=== PATIENT | female | born 1985 | race American Indian/Alaskan Native ===

== ENCOUNTER 2017-04-24 14:21 | Outpatient (CLI) | payer MEDICAID, BC ==
[2017-04-24] MEDS ORDERED: LACTATED RINGERS 500 ML IV ONE (14:45)
[2017-04-24 15:11] LABS: Bacteria,Urine 2+ /HPF (Negative); Bilirubin,Urine NEG (Negative); Blood,Urine NEG (Negative); Ketones,Urine NEG (Negative); Leukocyte Esterase,Urine MOD (Negative); Mucus,Urine FEW /HPF; Nitrite,Urine NEG (Negative); Protein,Urine <15 mg/dL mg/dL (Negative)
[2017-04-24] MEDS ORDERED: ZOFRAN PO ONE (15:44)
[2017-04-24] MEDS ORDERED: ZOFRAN IV ONE (16:21)
[2017-04-24 16:22] LABS: Hematocrit 32.1 % (30.3-42.9); Hemoglobin 10.5 gm/dl (10.1-14.3); Mean Corpuscular HGB Conc 33 % (30-34); Mean Corpuscular Hemoglobin 27 pg (28-32); Mean Corpuscular Volume 84 fl (79-97); Platelet Count 224 K/mm3 (140-440); Red Blood Count 3.85 M/mm3 (3.65-5.03); Red Cell Distribution Width 14.7 % (13.2-15.2); White Blood Count 9.7 K/mm3 (4.5-11.0)
[2017-04-24 16:23] LABS: Alanine Aminotransferase 8 units/L (7-56); Albumin 3.5 g/dL (3.9-5); Albumin/Globulin Ratio 1.1 %; Alkaline Phosphatase 147 units/L (35-129); Anion Gap 19 mmol/L; BUN/Creatinine Ratio 18; Blood Urea Nitrogen 7 mg/dL (7-17); Calcium 8.7 mg/dL (8.4-10.2); Carbon Dioxide 21 mmol/L (22-30); Chloride 101.6 mmol/L (98-107); Glucose 84 mg/dL (65-100); Potassium 3.7 mmol/L (3.6-5.0); Sodium 138 mmol/L (137-145); Total Protein 6.6 g/dL (6.3-8.2)
[2017-04-24 17:35] VITALS: BP 114/70
== END 2017-04-24 17:40 | disposition home or self-care (01) ==
LOC: TRG 14:21
PROVIDERS: ATTEND Obstetrics & Gynecology
DX: O47.03 False labor before 37 completed weeks of gestation, third trimester (principal); Z87.891 Personal history of nicotine dependence; Z3A.35 35 weeks gestation of pregnancy
CPT/HCPCS: 36415; 59025; 80053; 81001; 85027; 96360; 96374; J2405; J7120; Q0162

== ENCOUNTER 2017-06-03 04:22 | Inpatient (IN) | payer BC, MEDICAID ==
[2017-06-03] MEDS ORDERED: MINERAL OIL PO PRN (06:40)
[2017-06-03] MEDS ORDERED: BRETHINE SUB-Q PRN (06:40)
[2017-06-03] MEDS ORDERED: ePHEDrine SULFATE IV PRN ×2 (06:40→10:00)
[2017-06-03] MEDS ORDERED: ZOFRAN IV PRN ×2 (06:40→12:00)
[2017-06-03] MEDS ORDERED: SUBLIMAZE IV PRN (06:40)
[2017-06-03] MEDS ORDERED: BRETHINE IVP PRN (06:40)
[2017-06-03] MEDS ORDERED: XYLOCAINE 2% INFILTRATI ONE (06:40)
--- NOTE | 2017-06-03 06:47 | History and Physical Report ---
History of Present Illness Date of examination: 06/03/17 Chief complaint: Painful contractions History of present illness: 31 y/o at 40+6 wks in active labour, she is a [facility] patient. care has been unremarkable, she is GBS neg per oral report. Have no records at [facility] er time. In triage, she is 6-7 cm and post. Cephalic presentation. Past History Past Medical History: no pertinent history Past Surgical History: no surgical history [employer] History: denies: chlamydia, gonorrhea, hepatitis B, hepatitis C, herpes, HIV , syphilis, trichomonas Social history: single, full code. denies: smoking, alcohol abuse, prescription drug abuse, IV drug use - Obstetrical History Expected Date of Delivery: 05/28/17 Actual Gestation: 40 Week(s) 6 Day(s) : 5 Para: 3 Medications and Allergies Allergies Allergy/AdvReac Type Severity Reaction Status Date / Time No Known Allergies Allergy Verified 09/03/15 09:23 Home Medications Medication Instructions Recorded Confirmed Last Taken Type Vit Calc,Iron,Folic 1 each PO QDAY #30 tablet 09/03/15 04/21/17 09:00 Rx [ Vitamins] 1 Review of Systems Constitutional: no fever, no chills, no fatigue, no weakness, no malaise, no lethargy, no chronic headaches Cardiovascular: no chest pain, no orthopnea, no syncope, no lightheadedness, no shortness of breath, no dyspnea on exertion, no paroxysmal nocturnal dyspnea, no high blood pressure, no decreased exercise tolerance Respiratory: no cough, no cough with sputum, no shortness of breath, no dyspnea on exertion Gastrointestinal: abdominal pain, no nausea, no vomiting, no heartburn, no excessive gas, no dyspepsia/bloating Genitourinary: contractions, no vaginal bleeding, no vaginal discharge, no leakage of fluid - Vital Signs Vital signs: Vital Signs Temp Resp 98.2 F 18 06/03/17 04:41 06/03/17 04:41 Temp Pulse Resp BP Pulse Ox 98.2 F 93 H 18 137/90 06/03/17 04:41 06/03/17 06:20 06/03/17 04:41 06/03/17 06:20 - Physical Exam Cardiovascular: Regular rate, Normal S1, Normal S2 Lungs: Positive: Clear to auscultation, Normal air movement Abdomen: Positive: normal appearance, soft. Negative: tenderness, guarding, rigidity Genitourinary (Female): Positive: normal external genitalia Vulva: both: normal Uterus: Positive: enlarged (EFW ~ 3500) Adnexa: both: normal Extremities: Positive: normal - Obstetrical FHR: category 1 Cervical Dilatation: 6.5 station: -1 Results All other labs normal. Assessment and Plan A: 31 y/o at 40+6 wks in active labor -Doing well P: -Admit -Routine labs -Epidural prn -Expectant mgt - Patient Problems (1) 40 weeks gestation of Current Visit: Yes Status: Acute (2) Active labor at term Current Visit: Yes Status: Acute
[2017-06-03] MEDS ORDERED: PITOCin/NS 20 UNIT/1000ML DRIP 20 UNITS/1,000 ML BAG IV SCH ×2 (07:00→12:00)
[2017-06-03] MEDS ORDERED: LACTATED RINGERS 1,000 ML IV SCH (07:00)
[2017-06-03] MEDS ORDERED: PITOCin/NS 30 UNIT/500ML 30 UNITS/500 ML BAG IV SCH ×2 (07:00)
[2017-06-03 08:02] LABS: Hematocrit 33.5 % (30.3-42.9); Hemoglobin 10.6 gm/dl (10.1-14.3); Mean Corpuscular HGB Conc 32 % (30-34); Mean Corpuscular Volume 80 fl (79-97); Platelet Count 213 K/mm3 (140-440); Red Blood Count 4.17 M/mm3 (3.65-5.03)
[2017-06-03 08:16] LABS: Mean Corpuscular Hemoglobin 26 pg (28-32)
[2017-06-03] MEDS ORDERED: NARCAN 2 MG/2 ML IV PRN (09:22)
--- NOTE | 2017-06-03 09:22 | Anesthesia Consultation ---
Anesthesia Consult and Med Hx Date of service: 06/03/17 - Airway Anesthetic Teeth Evaluation: Good ROM Head & Neck: Adequate Mental/Hyoid Distance: Adequate Mallampati Class: Class II Intubation Access Assessment: Probably Good - Pulmonary Exam CTA: Yes - Cardiac Exam Cardiac Exam: RRR - Pre-Operative Health Status ASA Pre-Surgery Classification: ASA2 Proposed Anesthetic Plan: Epidural - Pre-Anesthesia Comment Pre-Anesthesia Comments: 31y at 40+ weeks - Pulmonary Hx Smoking: Yes (3-4 cig/ day) Hx Asthma: No SOB: No COPD: No Hx Pneumonia: No - Cardiovascular System Hx Hypertension: No - Central Nervous System Hx Seizures: No Hx Psychiatric Problems: No - Gastrointestinal Hx Gastroesophageal Reflux Disease: Yes (during only) - Endocrine Hx Renal Disease: No Hx End Stage Renal Disease: No Hx Non-Insulin Dependent Diabetes: No Hx Hypothyroidism: No Hx Hyperthyroidism: No - Hematic Hx Anemia: Yes Hx Sickle Cell Disease: No - Other Systems Hx Alcohol Use: No Hx Substance Use: Yes (occ marijuana) Hx Obesity: No
[2017-06-03] MEDS ORDERED: fentaNYL-BUPIV 2 MCG/ML-0.125% 200 MCG/100 ML BAG EPIDURAL SCH (10:00)
--- NOTE | 2017-06-03 11:41 | Procedure Note ---
OB Delivery Note - Delivery Date of Delivery: 06/03/17 Surgeon: VERENA HUBER Estimated blood loss: 100cc - Vaginal Delivery presentation: vertex Delivery position: OA Intrapartum events: precipitous labor- <3hr Delivery induction: none Delivery augmentation: pitocin Delivery monitor: external FHT, external uterine Route of delivery: Delivery placenta: spontaneous Delivery cord: 3 umbilical vessels Episiotomy: none Delivery laceration: 2nd degree Delivery repair: vicryl Anesthesia: epidural - Infant A at 1 minute: 8 at 5 minutes: 9 Gender: Male (delivery 11:23 AM, weight 8 lbs. 3 oz. or 3706 grams )
[2017-06-03] MEDS ORDERED: TYLENOL PO PRN (12:00)
[2017-06-03] MEDS ORDERED: PHENERGAN PR PRN (12:00)
[2017-06-03] MEDS ORDERED: NORCO 5/325 PO PRN (12:00)
[2017-06-03] MEDS ORDERED: LANSINOH TP PRN (12:00)
[2017-06-03] MEDS ORDERED: SENOKOT S PO SCH (12:00)
[2017-06-03] MEDS ORDERED: PHENERGAN PO PRN (12:00)
[2017-06-03] MEDS ORDERED: SODIUM CHLORIDE FLUSH SYRINGE 10 ML IV PRN (12:00)
[2017-06-03] MEDS ORDERED: ANUCORT-HC PR PRN (12:00)
[2017-06-03] MEDS ORDERED: TUCKS PAD TP PRN (12:00)
[2017-06-03] MEDS ORDERED: BENADRYL PO PRN (12:00)
[2017-06-03] MEDS: MOTRIN PO SCH (19:13)
[2017-06-03] MEDS ORDERED: DERMOPLAST TP PRN (20:47)
[2017-06-03] MEDS: FEOSOL PO SCH (21:27)
[2017-06-03] MEDS: COLACE PO SCH (21:27)
[2017-06-03] MEDS ORDERED: MILK OF MAGNESIA PO PRN (22:00)
[2017-06-03] MEDS ORDERED: DULCOLAX PR PRN (22:00)
[2017-06-04] MEDS: MOTRIN PO SCH ×3 (00:12→14:00)
[2017-06-04 01:04] LABS: Hematocrit 29.6 % (30.3-42.9); Hemoglobin 9.2 gm/dl (10.1-14.3)
--- NOTE | 2017-06-04 07:21 | Progress Note ---
Assessment and Plan - Patient Problems (1) (normal spontaneous vaginal delivery) Onset Date: 06/04/17 Current Visit: Yes Status: Resolved Plan to address problem: A: S/P - PPD #1 Doing well Asymptomatic anemia - stable P: May go home today Subjective - Subjective Date of service: 06/04/17 Principal diagnosis: s/p - PPD #1 Interval history: Pt is feeling well without complaints. Bleeding improved. Patient reports: appetite normal, voiding normally, pain well controlled, flatus , ambulating normally Swisher: doing well, nursing well Objective - Vital Signs Latest vital signs: Vital Signs Temp Pulse Resp BP BP Pulse Ox 06/04/17 01:19 97.7 F 111/69 06/03/17 20:05 98.4 F 87 18 122/77 98 06/03/17 17:22 98.0 F 77 18 124/71 96 06/03/17 13:40 97.4 F L 86 20 129/83 06/03/17 12:39 86 138/88 06/03/17 12:24 82 133/83 06/03/17 12:09 82 126/82 06/03/17 12:00 85 100 06/03/17 11:55 84 100 06/03/17 11:24 105 H 100 06/03/17 11:19 81 67 L 06/03/17 11:18 61 89 06/03/17 11:14 91 H 100 06/03/17 11:13 10 L 06/03/17 11:09 89 100 06/03/17 11:08 93 H 0 L 06/03/17 11:04 86 100 06/03/17 10:59 84 100 06/03/17 10:54 93 H 100 06/03/17 10:49 93 H 100 06/03/17 10:45 83 133/85 06/03/17 10:43 83 99 06/03/17 10:38 91 H 100 06/03/17 10:33 84 99 06/03/17 10:27 92 H 100 06/03/17 10:25 89 0 L 06/03/17 10:21 97 H 100 06/03/17 10:19 104 H 136/81 06/03/17 10:17 100 H 146/73 06/03/17 10:15 90 131/74 06/03/17 10:14 90 94 02/01/18 10:13 100 H 147/64 06/03/17 10:10 86 138/76 100 06/03/17 10:09 89 131/75 0 L 06/03/17 10:07 86 136/76 06/03/17 10:05 99 H 100 06/03/17 10:04 98 H 135/72 06/03/17 10:02 114 H 129/72 06/03/17 10:00 116 H 143/81 100 06/03/17 09:58 97 H 138/79 06/03/17 09:56 122 H 133/73 06/03/17 09:55 111 H 100 06/03/17 09:54 109 H 134/83 06/03/17 09:52 90 129/83 06/03/17 09:51 86 136/85 06/03/17 09:50 62 L 06/03/17 09:48 82 131/80 100 06/03/17 09:47 93 H 121/76 06/03/17 09:46 89 131/77 06/03/17 09:43 105 H 100 06/03/17 09:38 100 H 100 06/03/17 09:36 107 H 86 06/03/17 09:31 103 H 132/88 06/03/17 08:47 91 H 100 06/03/17 08:42 94 H 136/86 99 06/03/17 08:00 98.2 F 88 18 136/86 99 06/03/17 07:49 18 Intake and Output 06/03/17 06/04/17 06/04/17 22:59 06:59 14:59 Intake Total 480 Balance 480 Intake: Oral 480 Other: Total, Intake Amount 480 # Voids Void 1 - Exam Breasts: Present: deferred Abdomen: Present: normal appearance, soft Uterus: Present: normal, firm, fundal height below umbilicus Extremities: Present: normal - Labs Labs: Abnormal lab results 06/03/17 06/04/17 Range/Units 07:37 00:40 WBC 11.7 H (4.5-11.0) K/mm3 Hgb 9.2 L (10.1-14.3) gm/dl Hct 29.6 L (30.3-42.9) % MCH 26 L (28-32) pg RDW 16.0 H (13.2-15.2) % Laboratory Tests 06/03/17 06/03/17 06/03/17 07:37 07:37 07:37 WBC 11.7 H RBC 4.17 Hgb 10.6 Hct 33.5 MCV 80 MCH 26 L MCHC 32 RDW 16.0 H Plt Count 213 RPR Nonreactive Blood Type O POSITIVE Antibody Screen Negative 06/04/17 00:40 WBC RBC Hgb 9.2 L Hct 29.6 L MCV MCH MCHC RDW Plt Count RPR Blood Type Antibody Screen
--- NOTE | 2017-06-04 08:35 | Discharge Summary ---
Providers - Providers Date of Admission: 06/03/17 06:50 Date of discharge: 06/04/17 Attending physician: VERENA HUBER Primary care physician: VERENA HUBER Hospitalization Reason for admission: active labor, IUP at term Delivery: Episiotomy: none Laceration: 2nd degree Other procedures: none complications: none Discharge diagnosis: IUP at term delivered [place] baby: male Hospital course: Unremarkable. Condition at discharge: Good Disposition: DC-01 TO HOME OR SELFCARE - Discharge Diagnoses (1) (normal spontaneous vaginal delivery) Status: Resolved Plan - Discharge Medications Prescriptions: HYDROcodone/APAP 5-325 [[place] 5/325] 1 each PO Q6HR PRN #10 tablet PRN Reason: Pain Ibuprofen [Motrin 600 MG tab] 600 mg PO Q8H PRN #30 tablet PRN Reason: Pain Multivitamin with Iron [Multivitamins with Iron] 1 each PO DAILY #30 tablet - Provider Discharge Summary Activity: routine, no sex for 6 weeks, no heavy lifting 4 weeks, no strenuous exercise Diet: routine Instructions: routine Additional instructions: [] Smoking cessation referral if applicable(refer to patient education folder for contact #) [] Refer to [facility]'s [facility] Booklet Call your doctor immediately for: * Fever > 100.5 * Heavy vaginal bleeding ( >1 pad per hour) * Severe persistent headache * Shortness of breath * Reddened, hot, painful area to leg or breast * Drainage or odor from incision. * Keep incision clean and dry at all times and follow doctor's instructions regarding bathing/showering - Follow up plan Follow up: VERENA HUBER MD [Primary Care Provider] - 6 Weeks
[2017-06-04 09:41] VITALS: BP 132/70
[2017-06-04] MEDS ORDERED: PRENATAL VITAMIN PO SCH (10:00)
[2017-06-04] MEDS: COLACE PO SCH (14:00)
[2017-06-04] MEDS: FEOSOL PO SCH (14:00)
== END 2017-06-04 14:42 | disposition home or self-care (01) | DRG 775 ==
LOC: TRG 04:22 → LD 06:50 → OB 14:10
PROVIDERS: ADMIT Obstetrics & Gynecology Gynecology; ATTEND Obstetrics & Gynecology Gynecology
PROC: 10E0XZZ Delivery of Products of Conception, External Approach (ICD-10-PCS; principal; 2017-06-03)
PROC: 0KQM0ZZ Repair Perineum Muscle, Open Approach (ICD-10-PCS; 2017-06-03)
PROC: 3E0R3BZ Introduction of Anesthetic Agent into Spinal Canal, Percutaneous Approach (ICD-10-PCS; 2017-06-03)
PROC: 00HU33Z Insertion of Infusion Device into Spinal Canal, Percutaneous Approach (ICD-10-PCS; 2017-06-03)
DX: O62.3 Precipitate labor (principal); O99.324 Drug use complicating childbirth; O70.1 Second degree perineal laceration during delivery; O99.03 Anemia complicating the puerperium; D64.9 Anemia, unspecified; O99.334 Smoking (tobacco) complicating childbirth; F17.200 Nicotine dependence, unspecified, uncomplicated; F12.90 Cannabis use, unspecified, uncomplicated; O99.62 Diseases of the digestive system complicating childbirth; K21.9 Gastro-esophageal reflux disease without esophagitis; Z37.0 Single live birth; Z3A.40 40 weeks gestation of pregnancy
CPT/HCPCS: 36415; 85014; 85018; 85027; 86592; 86850; 86900; 86901; 99211; G0463; J2590; J3010; J7120

== ENCOUNTER 2017-08-03 10:19 | Day surgery (SDC) | payer BC, MEDICAID ==
[2017-08-02 10:15] LABS: Basophils % (Auto) 0.8 % (0.0-1.8); Eosinophils # (Auto) 0.1 K/mm3 (0.0-0.4); Eosinophils % (Auto) 1.8 % (0.0-4.3); Hematocrit 35.8 % (30.3-42.9); Hemoglobin 11.6 gm/dl (10.1-14.3); Lymphocytes # (Auto) 2.2 K/mm3 (1.2-5.4); Lymphocytes % (Auto) 44.9 % (13.4-35.0); Mean Corpuscular HGB Conc 33 % (30-34); Mean Corpuscular Hemoglobin 27 pg (28-32); Mean Corpuscular Volume 84 fl (79-97); Monocytes # (Auto) 0.5 K/mm3 (0.0-0.8); Monocytes % (Auto) 10.4 % (0.0-7.3); Platelet Count 303 K/mm3 (140-440); Red Blood Count 4.24 M/mm3 (3.65-5.03); Red Cell Distribution Width 18.3 % (13.2-15.2)
[~2017-08-03 10:19] MED LIST: DIPRIVAN 10 MG/ML IV ONE; NACL 0.9% IR ONE; SUBLIMAZE ONE; XYLOCAINE CARDIAC IV ONE
--- NOTE | 2017-08-03 10:32 | Short Stay Summary ---
Short Stay Documentation Date of service: 08/03/17 Narrative H&P: Pt is a 31yo BF LMP 07/17/17 presents for permanent sterilization. She is s /p 06/03/17. - History Principal diagnosis: Desires permanent sterilization H&P: obtained from office Past Medical History: No medical history Past Surgical History: No surgical history, Other (Laparoscopy) Social history: no significant social history, single - Allergies and Medications Current Medications: Allergies No Known Allergies Allergy (Verified 08/02/17 08:09) Home Medications Medication Instructions Recorded Confirmed Last Taken Type No Known Home Medications [No 08/02/17 08/02/17 Unknown History Reported Home Medications] Active Medications Cefazolin Sodium (Ancef/Sterile Water 2 Gm/20 Ml) 2 gm in 20 mls @ 80 mls/hr IV PREOP NR; Protocol Lactated Ringer's (Lactated Ringers) 1,000 mls @ 125 mls/hr IV DIRECT BETTINA - Physical exam General appearance: no acute distress Integumentary: no rash HEENT: Atraumatic Lungs: Clear to auscultation Breasts: deferred Heart: Regular rate Gastrointestinal: normal Female Genitourinary: deferred Rectal Exam: deferred Extremities: No edema Neurological: Normal gait, Normal speech - Brief post op/procedure progress note Date of procedure: 08/03/17 Pre-op diagnosis: Desires permanent sterilization Post-op diagnosis: same Procedure: Laproscopic Bilateral Tubal Ligation Anesthesia: GETA Findings: Normal uterus. Normal tubes and ovaries bilaterally. Surgeon: ALLY LARSON Estimated blood loss: minimal Pathology: none Condition: stable - Hospital course Hospital course: Unremarkable. - Disposition Condition at discharge: Good Disposition: DC-01 TO HOME OR SELFCARE - Discharge Diagnoses (1) Encounter for sterilization Status: Resolved Short Stay Discharge Plan Activity: no restrictions Diet: regular Wound: open to air, keep clean and dry Follow up with: ALLY LARSON MD [Primary Care Provider] - 14 Days Prescriptions: HYDROcodone/APAP 5-325 [[place] 5/325] 1 each PO Q6HR PRN #20 tablet PRN Reason: Pain Ibuprofen [Motrin] 800 mg PO Q8HR PRN #30 tablet PRN Reason: Moder Pain Unrelieved By [place]
[2017-08-03] MEDS ORDERED: ANCEF/STERILE WATER 2 GM/20 ML 2 GM/20 ML SYRINGE IV NR (11:00)
[2017-08-03] MEDS ORDERED: LACTATED RINGERS 1,000 ML IV SCH (11:00)
[2017-08-03] MEDS ORDERED: MARCAINE 0.5% INFILTRATI ONE ×2 (11:46→12:53)
--- NOTE | 2017-08-03 11:56 | Anesthesia Consultation ---
Anesthesia Consult and Med Hx Date of service: 08/03/17 - Airway Anesthetic Teeth Evaluation: Good (upper and lower braces, tounge ring) ROM Head & Neck: Adequate Mental/Hyoid Distance: Adequate Mallampati Class: Class II Intubation Access Assessment: Probably Good - Pre-Operative Health Status ASA Pre-Surgery Classification: ASA2 Proposed Anesthetic Plan: General - Pulmonary Hx Smoking: Yes (former) Hx Asthma: No SOB: No COPD: No Hx Pneumonia: No - Cardiovascular System Hx Hypertension: No - Central Nervous System Hx Seizures: No Hx Psychiatric Problems: No - Gastrointestinal Hx Gastroesophageal Reflux Disease: Yes (during only) - Endocrine Hx Renal Disease: No Hx End Stage Renal Disease: No Hx Non-Insulin Dependent Diabetes: No Hx Hypothyroidism: No Hx Hyperthyroidism: No - Hematic Hx Anemia: Yes Hx Sickle Cell Disease: No - Other Systems Hx Alcohol Use: Yes (occas) Hx Substance Use: Yes (occ marijuana) Hx Cancer: No Hx Obesity: No
--- NOTE | 2017-08-03 11:57 | Anesthesia Day of Surgery ---
Anesthesia Day of Surgery - Day of Surgery Patient Examined: Yes Patient H&P Reviewed: Yes Patient is NPO: Yes
[2017-08-03] MEDS ORDERED: PEPCID IV NR (12:00)
[2017-08-03] MEDS ORDERED: VERSED IV NR (12:00)
[2017-08-03] MEDS ORDERED: NACL 0.9% IR ONE (12:56)
--- NOTE | 2017-08-03 13:20 | Operative Report ---
Operative Report Operative Report: PREOPERATIVE DIAGNOSIS: 08/03/2017 POSTOPERATIVE DIAGNOSIS: Desires permanent sterilization OPERATIVE PROCEDURE: Laparoscopic bilateral tubal ligation. SURGEON: Mak Dickey MD ANESTHESIA: Gen. endotracheal intubation ANESTHESIOLOGIST: Dr. Robledo ESTIMATED BLOOD LOSS: Minimal FINDINGS: Normal uterus. Normal tubes and ovaries bilaterally. COMPLICATIONS: None COUNTS: Correct x3. PROCEDURE: After the patient was correctly identified and after general anesthesia was administered, the patient was prepped and draped in usual sterile fashion and placed in dorsal lithotomy position. First, the bladder was emptied using a straight catheter. Next, a speculum was placed in the vaginal vault and the anterior lip of the cervix was grasped using a single- tooth tenaculum. The uterine manipulator was then placed and the tenaculum and speculum were removed. Attention was then turned to the abdomen where first a periumbilical incision was made using a skin knife, and the Optiview trocar was inserted under direct visualization. After an adequate amount of abdominal insufflation, visualization of the pelvic organs found the uterus to be normal, and the tubes and ovaries to be normal bilaterally. Next, the left fallopian tube was grasped using the Kleppingers, and after identifying the fimbriated end of the left tube, this tube was cauterized in 3 continuous [address] along the proximal portion of the left tube. The same procedure was performed on the right fallopian tube after first identifying the fimbriated end of the right tube. This tube was also cauterized in 3 continuous places along the proximal portion of the right tube. At this point, the procedure was then considered complete. All instruments were removed from the abdomen. The abdomen was deflated and the periumbilical incision was closed using 0 Vicryl suture in a [id number] configuration on the fascia, followed by 4-0 Monocryl suture in subcuticular fashion on the skin. The incision was also infiltrated using 0.5% Marcaine solution. The uterine manipulator was removed. The patient tolerated the procedure well and was transferred to recovery room stable condition.
[2017-08-03] MEDS ORDERED: ZEMURON IV ONE (13:28)
[2017-08-03] MEDS ORDERED: NEOSTIGMINE ONE (13:28)
[2017-08-03] MEDS ORDERED: ROBINUL ONE (13:28)
[2017-08-03] MEDS ORDERED: ZOFRAN ONE (13:30)
[2017-08-03 15:16] VITALS: BP 139/84
== END 2017-08-03 15:05 | disposition home or self-care (01) ==
LOC: OR 10:19
PROVIDERS: ATTEND Obstetrics & Gynecology
DX: Z30.2 Encounter for sterilization (principal); Z79.899 Other long term (current) drug therapy; Z87.891 Personal history of nicotine dependence
CPT/HCPCS: 36415; 58670; 81025; 84703; 85025; J0690; J2001; J2250; J2405; J2704; J2710; J3010; J7120